=== PATIENT | male | born 1965 | race Two or more races ===

== ENCOUNTER 2016-07-11 00:28 | Emergency (ER) | payer MEDICAID ==
[~2016-07-11] VITALS: Ht 165.1 cm; Wt 65.8 kg
[2016-07-11] MEDS ORDERED: LANTUS SOL100 UNIT/1 SUBQ (00:37)
[2016-07-11] MEDS ORDERED: TdaP Vaccine 0.5ml Syr IM ONE (01:00)
--- NOTE | 2016-07-11 01:26 | Emergency Room Report ---
History of Present Illness General Chief Complaint: Laceration Source: Patient Present Illness HPI This is a 50-year-old male with no past medical history. He presents with chief complaint of head injury. He was working in his car in [employer]. He sustained laceration to the top of his head. This happened a few hours ago. Still bleeding and this is why he came in. No other injury. Did not pass out. Tetanus not up-to-date. Allergies: Coded Allergies: No Known Allergies (Unverified , 07/11/16) Patient History Past Medical History: none, see triage record, old chart reviewed Past Surgical History: none Pertinent Family History: none Social History: Reports: smoking Immunizations: other Reviewed Nursing Documentation: PMH: Agreed, PSxH: Agreed Nursing Documentation-PMH Hx Diabetes: Yes Review of Systems Eye: Denies: blurred vision, eye pain ENT: Denies: ear pain, nose congestion, throat swelling Respiratory: Denies: cough, shortness of breath Cardiovascular: Denies: chest pain, palpitations Gastrointestinal: Denies: abdominal pain, diarrhea, nausea, vomiting Musculoskeletal: Denies: back pain, joint pain Skin: Denies: rash Neurological: Denies: headache, numbness Endocrine: Denies: increased thirst, increased urine Hematologic/Lymphatic: Denies: easy bruising All Other Systems: negative except mentioned in HPI Physical Exam Vital Signs Date Time Temp Pulse Resp B/P Pulse Ox O2 Delivery O2 Flow Rate FiO2 07/11/16 00:31 97.2 102 16 136/90 99 Room Air vitals normal Sp02 EP Interpretation: reviewed, normal General Appearance: well appearing, no apparent distress, alert Head: normocephalic, other - 5 cm laceration over the right parietal frontal scalp. No hematoma. Foreign body. Eyes: bilateral eye EOMI, bilateral eye PERRL ENT: hearing grossly normal, normal pharynx Neck: full range of motion, supple, no meningismus Respiratory: chest non-tender, lungs clear, normal breath sounds Cardiovascular #1: regular rate, rhythm, no murmur Gastrointestinal: normal bowel sounds, non tender, no mass, no organomegaly, no bruit, non-distended Musculoskeletal: back normal, gait/station normal, normal range of motion Psychiatric: mood/affect normal Skin: warm/dry Procedures Laceration/Wound Repair Laceration/Wound Repair : Consent: Verbal Wound Location: head Wound's Depth, Shape: superficial Wound Length (cm): 5 Wound Explored: clean Irrigated w/ Saline (ccs): 1000 Betadine Prep?: Yes Anesthesia: Lidocaine w/ Epi Volume Anesthetic (ccs): 5 Suture Size/Type: 5:0, nylon Number of Sutures: 5 Patient Tolerated: Well Complications: None Medical Decision Making Diagnostic Impression: Primary Impression: Scalp laceration Qualified Codes: S01.01XA - Laceration without foreign body of scalp, initial encounter ER Course Patient with a scalp laceration. No foreign body. No skull fracture. We'll discharge home. Last Vital Signs Date Time Temp Pulse Resp B/P Pulse Ox O2 Delivery O2 Flow Rate FiO2 07/11/16 00:31 97.2 102 16 136/90 99 Room Air Status: improved Disposition: HOME, SELF-CARE Condition: Stable Referrals: NOT CHOSEN IPA/MD,REFERRING (PCP) Patient Instructions: Laceration Care, Adult Additional Instructions: Followup your Dr. in 5-7 days for suture removal. Return if worse. GILA BARROSO M.D. Jul 11, 2016 01:26
[2016-07-11 01:51] VITALS: BP 99/67
== END 2016-07-11 01:51 | disposition home or self-care (01) ==
LOC: EMR 00:50
DX: S01.01XA Laceration without foreign body of scalp, initial encounter (principal); E11.9 Type 2 diabetes mellitus without complications; F17.200 Nicotine dependence, unspecified, uncomplicated; Z23 Encounter for immunization; W22.09XA Striking against other stationary object, initial encounter; Y92.9 Unspecified place or not applicable; Y99.8 Other external cause status
CPT/HCPCS: 12002; 90471; 90715; 99284; Z7502

== ENCOUNTER 2018-06-04 20:37 | Emergency (ER) | payer MEDICAID ==
[~2018-06-04] VITALS: Ht 167.6 cm; Wt 68.0 kg
[~2018-06-04 20:37] MED LIST: LANTUS SOL100 UNIT/1 SUBQ
--- NOTE | 2018-06-04 20:37 | NUR ---
ED Nurse Note: PT brought in by JOSE M R26 coming from home c/o generalized weakness due high blood sugar. BS critical high per accucheck. Attached to monitor.
--- NOTE | 2018-06-04 20:45 | NUR ---
ED Nurse Note: IV access established. blood collected; sent down to lab.
--- NOTE | 2018-06-04 21:12 | Emergency Room Report ---
History of Present Illness General Chief Complaint: Generalized Weakness Source: Patient, Family Member Present Illness HPI Is a 52-year-old male who has a history of insulin-dependent diabetes. He presents with chief complaint of weakness and pain. Pain is to the left side. Onset for last 4 days. Also with coughing and subjective fever. Pain is 10 out of 10. Worse with movement. He said he was working on his car when he still some fluid on his body. He thought it may be from that. Denies any other complaint. No nausea no vomiting. Decreased appetite. Allergies: Coded Allergies: No Known Allergies (Unverified , 07/11/16) Patient History Past Medical History: see triage record, old chart reviewed, DM Past Surgical History: other Pertinent Family History: none Social History: Denies: smoking Immunizations: other Reviewed Nursing Documentation: PMH: Agreed; PSxH: Agreed Nursing Documentation-PMH Hx Diabetes: Yes Review of Systems Constitutional: Reports: fever, malaise, weakness Eye: Denies: eye pain, blurred vision ENT: Denies: ear pain, nose congestion, throat swelling Respiratory: Reports: cough; Denies: shortness of breath Cardiovascular: Denies: chest pain, palpitations Gastrointestinal: Denies: abdominal pain, diarrhea, nausea, vomiting Musculoskeletal: Reports: back pain; Denies: joint pain Skin: Denies: rash Neurological: Denies: headache, numbness Endocrine: Denies: increased thirst, increased urine Hematologic/Lymphatic: Denies: easy bruising All Other Systems: negative except mentioned in HPI Physical Exam Vital Signs Date Time Temp Pulse Resp B/P (MAP) Pulse Ox O2 Delivery O2 Flow Rate FiO2 06/04/18 20:28 99.0 100 16 107/75 96 Room Air vitals unremarkable Sp02 EP Interpretation: reviewed, normal General Appearance: well appearing, no apparent distress, alert Head: normocephalic, atraumatic Eyes: bilateral eye PERRL, bilateral eye EOMI ENT: hearing grossly normal, normal pharynx Neck: full range of motion, supple, no meningismus Respiratory: chest non-tender, lungs clear, normal breath sounds Cardiovascular #1: regular rate, rhythm, no murmur Gastrointestinal: normal bowel sounds, non tender, no mass, no organomegaly, no bruit, non-distended Musculoskeletal: back normal, gait/station normal, normal range of motion, tender - Diffuse body pain Psychiatric: mood/affect normal Skin: warm/dry Medical Decision Making Diagnostic Impression: Primary Impression: Influenza-like illness Additional Impressions: Hyperglycemia due to type 1 diabetes mellitus SIRS (systemic inflammatory response syndrome) ER Course Patient with fever and diffuse body pain and cough. Is an influenza-like illness. Because of his diabetes, we'll go ahead and treat with Tamiflu even though his been 4 days. He has SIRS response with elevated lactic acid. Better after IV fluid. I see no evidence of ACS, PE, dissection to name a few. Chest x-ray negative. No evidence of fracture infection. Patient blood pressure has been persistently in the 90 to low 100. I see no evidence of pneumonia, acute abdomen or urinary infection. He has no evidence of any back pain to indicate spinal epidural abscess. Heart rate much improved with fluids. I discussed the case with Dr. Garcia who accepted pt for transfer to [facility]. Lab Results Impression labs with elevated glucose EKG Diagnostic Results Rate: tachycardiac Rhythm: NSR ST Segments: no acute changes Rhythm Strip Diag. Results Rhythm Strip Time: 21:27 EP Interpretation: yes Rate: 100 Rhythm: NSR, no PVC's, no ectopy Chest X-Ray Diagnostic Results Chest X-Ray Diagnostic Results : Chest X-Ray Ordered: Yes # of Views/Limited/Complete: 1 View Indication: Chest Pain EP Interpretation: Yes Interpretation: no consolidation, no effusion, no pneumothorax, no acute cardiopulmonary disease Impression: No acute disease Electronically Signed by: Osorio Christianson MD Last Vital Signs Date Time Temp Pulse Resp B/P (MAP) Pulse Ox O2 Delivery O2 Flow Rate FiO2 06/04/18 20:28 99.0 100 16 107/75 96 Room Air Status: improved Disposition: [facility] Condition: Stable Osorio Christianson MD Jun 04, 2018 21:12
[2018-06-04] MEDS ORDERED: Acetaminophen 500mg (ES) tab ORAL ONE (21:15)
[2018-06-04 21:29] LABS: BASOPHILS % (AUTO) 1.1 % (0.0-2.0); EOSINOPHILS % (AUTO) 0.1 % (0.0-3.0); HEMATOCRIT 44.2 % (42.0-52.0); HEMOGLOBIN 15.1 G/DL (14.2-18.0); LYMPHOCYTES % (AUTO) 11.7 % (20.0-45.0); MEAN CORPUSCULAR VOLUME 87 FL (80-99); MONOCYTES % (AUTO) 8.9 % (1.0-10.0); NEUTROPHILS % (AUTO) 78.3 % (45.0-75.0); PLATELET COUNT 254 K/UL (150-450); RED BLOOD COUNT 5.07 M/UL (4.70-6.10); RED CELL DISTRIBUTION WIDTH 10.6 % (11.6-14.8)
[2018-06-04 21:42] LABS: ANION GAP 9 mmol/L (5-15); BLOOD UREA NITROGEN 10 mg/dL (7-18); CALCIUM 9.3 MG/DL (8.5-10.1); CARBON DIOXIDE 28 MMOL/L (21-32); CHLORIDE 90 MMOL/L (98-107); CREATININE 1.1 MG/DL (0.55-1.30); POTASSIUM 5.2 MMOL/L (3.5-5.1); SODIUM 127 MMOL/L (136-145)
[2018-06-04 21:55] LABS: ALANINE AMINOTRANSFERASE 38 U/L (12-78); ALBUMIN 3.3 G/DL (3.4-5.0); ALBUMIN/GLOBULIN RATIO 0.7 (1.0-2.7); ALKALINE PHOSPHATASE 148 U/L (46-116); ASPARTATE AMINO TRANSFERASE 31 U/L (15-37); BILIRUBIN,TOTAL 0.5 MG/DL (0.2-1.0); CKMB < 0.5 NG/ML (0.0-3.6); CREATINE KINASE 78 U/L (26-308)
[2018-06-04] MEDS ORDERED: Insulin Human Regular 100units/ml 3ml IV ONE (22:00)
[2018-06-04 22:23] LABS: APPEARANCE,URINE CLEAR; BILIRUBIN, URINE NEGATIVE (NEGATIVE); COLOR,URINE PALE YELLOW; GLUCOSE, URINE (UA) 4+ (NEGATIVE); KETONES,URINE 2+ (NEGATIVE); LEUKOCYTE ESTERASE ,URINE NEGATIVE (NEGATIVE); NITRITE,URINE NEGATIVE (NEGATIVE); PH,URINE 8 (4.5-8.0); PROTEIN,URINE 1+ (NEGATIVE); UROBILINOGEN,URINE NORMAL MG/DL (0.0-1.0)
[2018-06-04 22:29] VITALS: BP 107/75
--- NOTE | 2018-06-04 22:53 | NUR ---
ED Nurse Note: Repeat lactic drawn and sent down to lab.
[2018-06-04 23:30] VITALS: BP 91/52
[2018-06-05] MEDS ORDERED: Oseltamivir 75mg cap ORAL ONE (00:15)
[2018-06-05 01:00] VITALS: BP 100/60
--- NOTE | 2018-06-05 01:40 | NUR ---
ED Nurse Note: Left message for HIMANSHU Dyer for report; awaiting call back. Will call again in 30 min. Patient to be admitted to [facility] under the care of MD George.
--- NOTE | 2018-06-05 02:13 | NUR ---
ED Nurse Note: Report given to HIMANSHU Dyer. Patient in stable condition, NAD
[2018-06-05 02:16] VITALS: BP 107/68
--- NOTE | 2018-06-05 02:22 | NUR ---
ED Nurse Note: Report given to Caden GUZMAN of [facility]. Patient AO4 NAD VSS. Accompanied by family member. Belongings given to family member. Stable for transport.
[2018-06-05 02:23] VITALS: BP 107/68
--- NOTE | 2018-06-06 15:28 | Cardiology Report ---
APPROVED REPORT EKG Measurement Heart [id number] MI [id number] Sinus tachycardia Otherwise normal ECG
== END 2018-06-05 02:22 | disposition short-term general hospital (02) ==
LOC: EDBD 20:37 → EMR 23:53
DX: J11.1 Influenza due to unidentified influenza virus with other respiratory manifestations (principal); E10.65 Type 1 diabetes mellitus with hyperglycemia; R65.10 Systemic inflammatory response syndrome (SIRS) of non-infectious origin without acute organ dysfunction
CPT/HCPCS: 36415; 71045; 80053; 80307; 81003; 82550; 82553; 82962; 83605; 84484; 85025; 86710; 87040; 93005; 96361; 96374; 99284; J1815